=== PATIENT | female | born 1985 | race Caucasian/White ===

== ENCOUNTER 2016-05-31 18:21 | Emergency (ER) | payer OTHER ==
[2016-05-31 18:58] VITALS: RESP 18
--- NOTE | 2016-05-31 19:22 | ED ---
General Adult HPI - General Chief complaint: Chest Pain Stated complaint: abbey Time Seen by Provider: 05/31/16 19:09 Source: patient, RN notes reviewed Mode of arrival: ambulatory Limitations: no limitations - History of Present Illness Initial comments: Patient is a 30-year-old female who presents emergency room today with a chief complaint of bilateral lower rib pain over the last week. Patient does admit that the pain is worse with coughing and sneezing. She does admit that she's had a mild cough with some congestion. Patient denies any sputum production. Patient does state that pain is reproduced with certain movements and palpation. She denies any other complaints or associated symptoms. Patient denies any recent fever, chills, shortness of breath, back pain, abdominal pain , nausea or vomiting, numbness or tingling, dysuria or hematuria, constipation or diarrhea, headaches or visual changes, or any other complaints. - Related Data Home Medications Medication Instructions Recorded Confirmed Ibuprofen [Motrin] 800 mg PO DAILY PRN 05/31/16 05/31/16 Allergies Allergy/AdvReac Type Severity Reaction Status Date / Time latex Allergy Rash/Hives Verified 05/31/16 19:55 red dye Allergy Rash/Hives Verified 05/31/16 19:55 codeine AdvReac Nausea & Verified 05/31/16 19:55 Vomiting & Dizziness Review of Systems ROS Statement: Those systems with pertinent positive or pertinent negative responses have been documented in the HPI. ROS Other: All systems not noted in ROS Statement are negative. Past Medical History Past Medical History: Asthma History of Any Multi-Drug Resistant Organisms: None Reported Past Surgical History: Ear Surgery, Tonsillectomy, Tubal Ligation Past Psychological History: Bipolar Smoking Status: Former smoker Past Alcohol Use History: None Reported Past Drug Use History: None Reported General Exam - General Exam Comments Initial Comments: General: The patient is awake and alert, in no distress, and does not appear acutely ill. Eye: Pupils are equal, round and reactive to light, extra-ocular movements are intact. No nystagmus. There is normal conjunctiva bilaterally. No signs of icterus. Ears, nose, mouth and throat: There are moist mucous membranes and no oral lesions. Neck: The neck is supple, there is no tenderness or JVD. Cardiovascular: There is a regular rate and rhythm. No murmur, rub or gallop is appreciated. Respiratory: Lungs are clear to auscultation, respirations are non-labored, breath sounds are equal. No wheezes, stridor, rales, or rhonchi. Gastrointestinal: Soft, non-distended, non-tender abdomen without masses or organomegaly noted. There is no rebound or guarding present. No CVA tenderness. Bowel sounds are unremarkable. Musculoskeletal: Pain reproduced on palpation to the lower lateral ribs bilaterally. Normal ROM, no tenderness. Strength 5/5. Sensation intact. Pulses equal bilaterally 2+. Neurological: A&O x 3. CN II-XII intact, There are no obvious motor or sensory deficits. Coordination appears grossly intact. Speech is normal. Skin: Skin is warm and dry and no rashes or lesions are noted. Psychiatric: Cooperative, appropriate mood & affect, normal judgment. Limitations: no limitations Course Vital Signs 05/31/16 18:54 Temperature 97.8 F Pulse Rate 87 Respiratory 18 Rate Blood Pressure 123/82 O2 Sat by Pulse 99 Oximetry EKG Findings - EKG Comments: EKG Findings:: EKG performed at 1917: A 12-lead EKG was performed and interpreted by me as showing the following: Rate is 76, and rhythm is normal sinus. There are normal QRS complexes and normal R-wave progression. ST segments have no elevation or depression, and SD segments appear normal. Medical Decision Making - Medical Decision Making Case discussed in detail with attending physician Dr. Mohan. Patient examined at this time shows no signs of distress. EKG shows normal sinus rhythm. X-ray reviewed and unremarkable. Results were discussed patient. Patient's pain reproducible on palpation to the lower ribs bilaterally. Patient has had cough congestion over the past week sputum Production.Advised patient to continue anti -inflammatories as needed for pain and follow-up the family doctor over the next 2 days if symptoms are unimproved. Advised return here in the emergency room if any symptoms increase worsen. Patient states understanding and is in agreement. Disposition Clinical Impression: Chest wall pain Disposition: HOME SELF-CARE Condition: Good Instructions: Costochondritis (ED) Additional Instructions: Please use medication as discussed. Please follow-up with family doctor in the next 2 days of symptoms have not improved. Please return to emergency room if the symptoms increase or worsen or for any other concerns. Time of Disposition: 20:02
[2016-05-31 20:13] VITALS: BP 126/72; PULSE 81; TEMP 97.6
--- NOTE | 2016-05-31 22:23 | XR ---
EXAMINATION TYPE: XR chest 2V DATE OF EXAM: 05/31/2016 7:42 PM COMPARISON: Chest radiograph dated 06/27/2015 HISTORY: Bilateral rib pain and cough for one week TECHNIQUE: Frontal and lateral views of the chest are obtained. FINDINGS: There is no focal air space opacity, pleural effusion, or pneumothorax seen. The cardiac silhouette size is within normal limits. The osseous structures are intact. IMPRESSION: No acute cardiopulmonary process. No focal consolidation.
== END 2016-05-31 20:13 | disposition home or self-care (01) ==
LOC: EC 18:21
DX: R07.89 Other chest pain (principal); Z88.5 Allergy status to narcotic agent; Z91.02 Food additives allergy status; Z91.040 Latex allergy status; Z87.891 Personal history of nicotine dependence
CPT/HCPCS: 71020; 93005; 99285

== ENCOUNTER 2016-06-22 18:57 | Emergency (ER) | payer OTHER ==
--- NOTE | 2016-06-22 20:15 | ED ---
General Adult HPI - General Chief complaint: Extremity Problem,Nontraumatic Stated complaint: Bad foot pain Time Seen by Provider: 06/22/16 19:50 Source: patient, RN notes reviewed Mode of arrival: ambulatory Limitations: no limitations - History of Present Illness Initial comments: This is a 30-year-old female presents emergency Department complaining of a 2 day history of mid right foot pain. Patient states started hurting a couple days ago and hurts when she flexes it or stands up. Patient states his been no injury or trauma that she knows of. Patient states she is no swelling no redness. Patient denies any ankle pain or knee pain. Patient states it also hurts just anterior to the lateral malleolus. Again there is no swelling or redness. - Related Data Home Medications Medication Instructions Recorded Confirmed Ibuprofen [Motrin] 800 mg PO DAILY PRN 05/31/16 06/22/16 Albuterol Inhaler [Ventolin Hfa 1 - 2 puff INHALATION RT-Q6H PRN 06/22/16 Inhaler] Allergies Allergy/AdvReac Type Severity Reaction Status Date / Time latex Allergy Rash/Hives Verified 06/22/16 20:00 red dye Allergy Rash/Hives Verified 06/22/16 20:00 codeine AdvReac Nausea & Verified 06/22/16 20:00 Vomiting & Dizziness Review of Systems ROS Statement: Those systems with pertinent positive or pertinent negative responses have been documented in the HPI. ROS Other: All systems not noted in ROS Statement are negative. Past Medical History Past Medical History: Asthma History of Any Multi-Drug Resistant Organisms: None Reported Past Surgical History: Ear Surgery, Tonsillectomy, Tubal Ligation Past Psychological History: Bipolar Smoking Status: Former smoker Past Alcohol Use History: Rare Past Drug Use History: None Reported General Exam - General Exam Comments Initial Comments: GENERAL Patient is well-developed and well-nourished. Patient is in mild distress. EYES Patient's pupils are equal and round. Extraocular motion is intact SKIN Unremarkable NEURO The patient is alert and oriented 3 PYSCH Patient has normal interpersonal interactions. MUSCULOSKELETAL Foot is mildly tender anterior to the lateral malleolus and in the midfoot around metatarsal 3 and 4. No redness no swelling is noted. No foreign bodies are noted. No cuts or abrasions are noted. Limitations: no limitations Course Vital Signs 06/22/16 06/22/16 19:46 20:34 Temperature 100.0 F H 98.4 F Pulse Rate 93 90 Respiratory 18 20 Rate Blood Pressure 130/84 111/60 O2 Sat by Pulse 98 98 Oximetry Medical Decision Making - Medical Decision Making X-ray of the foot shows no acute abnormality. Disposition Clinical Impression: Foot sprain Disposition: HOME SELF-CARE Condition: Good Instructions: Foot Sprain (ED) Additional Instructions: Patient should take Motrin 600 mg every 6 hours when necessary for pain. Time of Disposition: 21:06
--- NOTE | 2016-06-22 20:29 | XR ---
EXAMINATION TYPE: XR foot complete RT DATE OF EXAM: 06/22/2016 8:24 PM COMPARISON: NONE HISTORY: Right foot pain TECHNIQUE: 3 views FINDINGS: I see no fracture nor dislocation. Metatarsals are intact. There are no erosions. IMPRESSION: Negative right foot exam.
[2016-06-22 20:35] VITALS: BP 111/60; PULSE 90; RESP 20; TEMP 98.4
== END 2016-06-22 21:22 | disposition home or self-care (01) ==
LOC: EC 18:57
DX: S93.601A Unspecified sprain of right foot, initial encounter (principal); J45.909 Unspecified asthma, uncomplicated; Z87.891 Personal history of nicotine dependence; Z88.5 Allergy status to narcotic agent; Z91.040 Latex allergy status; X58.XXXA Exposure to other specified factors, initial encounter
CPT/HCPCS: 99283

== ENCOUNTER 2016-10-09 18:08 | Emergency (ER) | payer OTHER ==
[2016-10-09 18:27] VITALS: BP 149/88; PULSE 90; RESP 20; TEMP 98.9
--- NOTE | 2016-10-09 18:43 | ED ---
General Adult HPI - General Chief complaint: Urogenital Stated complaint: abscess Time Seen by Provider: 10/09/16 18:31 Source: patient, RN notes reviewed Mode of arrival: ambulatory Limitations: no limitations - History of Present Illness Initial comments: Patient is a 30-year-old female with significant past medical history for Bartholin's cyst, who presents emergency room today with a chief complaint of increased pain and possible abscess formation that started this morning. Patient does admit that she is pain on the left side of the perineum. Patient denies any drainage or discharge. She denies any other complaints. States she has been told by her PRODUCE CLERK that his pain reoccurs that she may need surgery. Patient denies any other symptoms. Patient denies any recent fever, chills, shortness of breath, chest pain, back pain, abdominal pain, nausea or vomiting, numbness or tingling, dysuria or hematuria, constipation or diarrhea, headaches or visual changes, or any other complaints. - Related Data Home Medications Medication Instructions Recorded Confirmed Ibuprofen [Motrin] 800 mg PO DAILY PRN 05/31/16 10/09/16 Albuterol Inhaler [Ventolin Hfa 1 - 2 puff INHALATION RT-Q6H PRN 06/22/16 Inhaler] Previous Rx's Medication Instructions Recorded Ibuprofen [Motrin] 600 mg PO Q6HR PRN #40 day 10/09/16 Sulfamethox-Tmp 800-160Mg [Bactrim 1 tab PO Q12HR #20 tab 10/09/16 DS 800-160 mg] Allergies Allergy/AdvReac Type Severity Reaction Status Date / Time latex Allergy Rash/Hives Verified 10/09/16 18:27 red dye Allergy Rash/Hives Verified 10/09/16 18:27 codeine AdvReac Nausea & Verified 10/09/16 18:27 Vomiting & Dizziness Review of Systems ROS Statement: Those systems with pertinent positive or pertinent negative responses have been documented in the HPI. ROS Other: All systems not noted in ROS Statement are negative. Past Medical History Past Medical History: Asthma History of Any Multi-Drug Resistant Organisms: None Reported Past Surgical History: Ear Surgery, Tonsillectomy, Tubal Ligation Past Psychological History: Bipolar Smoking Status: Former smoker Past Alcohol Use History: Rare Past Drug Use History: None Reported General Exam - General Exam Comments Initial Comments: General: The patient is awake and alert, in no distress, and does not appear acutely ill. Eye: Pupils are equal, round and reactive to light, extra-ocular movements are intact. No nystagmus. There is normal conjunctiva bilaterally. No signs of icterus. Ears, nose, mouth and throat: There are moist mucous membranes and no oral lesions. Neck: The neck is supple, there is no tenderness or JVD. Cardiovascular: There is a regular rate and rhythm. No murmur, rub or gallop is appreciated. Respiratory: Lungs are clear to auscultation, respirations are non-labored, breath sounds are equal. No wheezes, stridor, rales, or rhonchi. Gastrointestinal: Soft, non-distended, non-tender abdomen without masses or organomegaly noted. There is no rebound or guarding present. No CVA tenderness. Bowel sounds are unremarkable. Musculoskeletal: Normal ROM, no tenderness. Strength 5/5. Sensation intact. Pulses equal bilaterally 2+. Neurological: A&O x 3. CN II-XII intact, There are no obvious motor or sensory deficits. Coordination appears grossly intact. Speech is normal. Skin: Skin is warm and dry and no rashes or lesions are noted. Psychiatric: Cooperative, appropriate mood & affect, normal judgment. : NEGATIVE STRIPPER Lisa present for exam. There is no sign of abscess on the outer surface of the labia majora. Check for a Bartholin's cyst and do not appreciate 1 here in the emergency room. No sign of drainage. No area of firmness or fluctuance. Patient does have tenderness locally to this area. Limitations: no limitations Course Vital Signs 10/09/16 18:25 Temperature 98.9 F Pulse Rate 90 Respiratory 20 Rate Blood Pressure 149/88 O2 Sat by Pulse 98 Oximetry Medical Decision Making - Medical Decision Making At this time there is no obvious abscess to drain. Advised patient was started on antibiotics and use warm compresses to the affected area. Advised follow-up the next 2 days or return here to the emergency room if symptoms increase or worsen. She states understanding and is in agreement. Disposition Clinical Impression: Abscess Disposition: HOME SELF-CARE Condition: Good Instructions: Bartholin Cyst (ED) Additional Instructions: Please use medication as discussed. Please follow-up with PRODUCE CLERK/family doctor in the next 2 days of symptoms have not improved. Please return to emergency room if the symptoms increase or worsen or for any other concerns. Prescriptions: Ibuprofen [Motrin] 600 mg PO Q6HR PRN #40 day PRN Reason: Pain Sulfamethox-Tmp 800-160Mg [Bactrim DS 800-160 mg] 1 tab PO Q12HR #20 tab Referrals: Jhon Harden III, MD [Primary Care Provider] - 1-2 days Time of Disposition: 18:42
== END 2016-10-09 19:00 | disposition home or self-care (01) ==
LOC: EC 18:08
DX: L02.215 Cutaneous abscess of perineum (principal); Z87.891 Personal history of nicotine dependence; Z91.040 Latex allergy status; Z91.048 Other nonmedicinal substance allergy status; Z88.5 Allergy status to narcotic agent
CPT/HCPCS: 99283

== ENCOUNTER 2018-01-23 13:39 | Emergency (ER) | payer OTHER ==
[2018-01-23 13:58] VITALS: BP 122/64; PULSE 85; RESP 17; TEMP 96.9
--- NOTE | 2018-01-23 14:31 | ED ---
Lower Extremity Injury HPI - General Chief Complaint: Extremity Injury, Lower Stated Complaint: ankle pain Time Seen by Provider: 01/23/18 13:54 Source: patient, EMS, RN notes reviewed Mode of arrival: EMS Limitations: no limitations - History of Present Illness Initial Comments: 32-year-old female presents emergency Department chief complaint of right foot and ankle pain. Patient states has been bothersome for a while worsen over the last few days. She does have a history of fracture. She states that she cannot correlate this to any injury. Patient denies any calf pain, Swelling. Patient states that she has no back issues and denies any symptoms or her rating down her leg at this time. Patient denies any notable bruising or notable area of swelling. Patient has not follow-up with anybody at this time. - Related Data Home Medications Medication Instructions Recorded Confirmed Ibuprofen [Motrin] 800 mg PO DAILY PRN 05/31/16 01/23/18 Multivit with Calcium,Iron,Min 1 tab PO DAILY 01/23/18 01/23/18 [Women's Multivitamin] Previous Rx's Medication Instructions Recorded Ibuprofen [Motrin] 600 mg PO Q8HR PRN #30 tab 01/23/18 Allergies Allergy/AdvReac Type Severity Reaction Status Date / Time latex Allergy Rash/Hives Verified 01/23/18 14:33 red dye Allergy Rash/Hives Verified 01/23/18 14:33 codeine AdvReac Nausea & Verified 01/23/18 14:33 Vomiting & Dizziness Review of Systems ROS Statement: Those systems with pertinent positive or pertinent negative responses have been documented in the HPI. ROS Other: All systems not noted in ROS Statement are negative. Past Medical History Past Medical History: Asthma History of Any Multi-Drug Resistant Organisms: None Reported Past Surgical History: Adenoidectomy, Ear Surgery, Tonsillectomy, Tubal Ligation Additional Past Surgical History / Comment(s): d&c Past Psychological History: Bipolar Smoking Status: Former smoker Past Alcohol Use History: Rare Past Drug Use History: None Reported General Exam Limitations: no limitations General appearance: alert, in no apparent distress Head exam: Present: atraumatic, normocephalic, normal inspection Neck exam: Present: normal inspection, full ROM. Absent: tenderness, meningismus, lymphadenopathy Respiratory exam: Present: normal lung sounds bilaterally. Absent: respiratory distress, wheezes, rales, rhonchi, stridor Cardiovascular Exam: Present: regular rate, normal rhythm, normal heart sounds. Absent: systolic murmur, diastolic murmur, rubs, gallop, clicks Extremities exam: Present: other (Tenderness to lateral malleoli region on the right, tenderness the mid foot with no obvious swelling, deformity pedal pulses equal bilaterally with cap refill less than 2 seconds there is no proximal tib- fib tenderness and there is no femur tenderness) Neurological exam: Present: alert, oriented X3, CN II-XII intact Skin exam: Present: warm, dry, intact, normal color. Absent: rash Course Vital Signs 01/23/18 13:54 Temperature 96.9 F L Pulse Rate 85 Respiratory 17 Rate Blood Pressure 122/64 O2 Sat by Pulse 99 Oximetry Medical Decision Making - Medical Decision Making 32-year-old female presents emergency from chief complaint of right ankle pain. Patient had x-rays of her foot and ankle which showed no acute fracture. Patient most likely has a ankle sprain related to an injury. Patient will be placed in an Aircast and follow-up with on-call orthopedics return parameters were discussed. Disposition Clinical Impression: Right ankle sprain Disposition: HOME SELF-CARE Condition: Stable Instructions: Ankle Sprain (ED) Additional Instructions: Please return to the Emergency Department if symptoms worsen or any other concerns. Prescriptions: Ibuprofen [Motrin] 600 mg PO Q8HR PRN #30 tab PRN Reason: Pain Is patient prescribed a controlled substance at d/c from ED?: No Referrals: Be Orosco MD [STAFF PHYSICIAN] - 1-2 days Time of Disposition: 14:51
--- NOTE | 2018-01-23 14:42 | XR ---
Right foot and right ankle HISTORY: Unable to bear weight, pain 3 views of the right foot and 3 views of the right ankle correlated to prior right foot dated 06/22/19 17 Bone mineralization, joint spaces and alignment are maintained. No fracture or dislocation is evident . Some degenerative change present at the intertarsal joints. There is soft tissue swelling present. Small ossific densities metatarsophalangeal joint of the first digit medially is thought to be stable as well corticated. IMPRESSION: Soft tissue swelling, additional findings above. No acute bone abnormality evident.
== END 2018-01-23 15:17 | disposition home or self-care (01) ==
LOC: EC 13:39
DX: S93.401A Sprain of unspecified ligament of right ankle, initial encounter (principal); Z88.5 Allergy status to narcotic agent; Z91.040 Latex allergy status; Z91.048 Other nonmedicinal substance allergy status; Z79.899 Other long term (current) drug therapy; Z87.891 Personal history of nicotine dependence; X58.XXXA Exposure to other specified factors, initial encounter
CPT/HCPCS: 99283; 73610; 73630; L4350

== ENCOUNTER 2018-02-17 16:33 | Emergency (ER) | payer OTHER ==
[2018-02-17 17:31] VITALS: BP 121/75; PULSE 86; RESP 18; TEMP 98.2
--- NOTE | 2018-02-17 18:18 | XR ---
EXAMINATION TYPE: XR ankle complete LT DATE OF EXAM: 02/17/2018 COMPARISON: NONE HISTORY: Ankle pain TECHNIQUE: 3 views FINDINGS: There is soft tissue swelling over the lateral malleolus. Ankle mortise is anatomic. IMPRESSION: Mild soft tissue swelling. No fracture seen. There is accessory ossicle at the anterior n avicular.
--- NOTE | 2018-02-17 18:19 | XR ---
EXAMINATION TYPE: XR foot complete LT DATE OF EXAM: 02/17/2018 COMPARISON: NONE HISTORY: Foot pain. Fell down the steps. TECHNIQUE: 3 views FINDINGS: Metatarsals appear intact. I see no fracture nor dislocation. Joint spaces are normal. Ther e is accessory ossicle of the anterior navicular on the lateral view. IMPRESSION: No acute abnormality of the left foot.
--- NOTE | 2018-02-17 18:48 | ED ---
General Adult HPI - General Chief complaint: Extremity Injury, Lower Stated complaint: Foot swollen Time Seen by Provider: 02/17/18 18:36 Source: patient, RN notes reviewed Mode of arrival: ambulatory Limitations: no limitations - History of Present Illness Initial comments: Patient's a 32-year-old female presented to the emergency room today with a chief complaint of an injury to the left ankle that occurred a few hours ago. Patient does admit that she was walking down a few steps when she slipped and went down 2 steps rolling her left ankle. She states there was no loss of consciousness. She denies any headache at this time. She denies any other complaints or symptoms currently. She does admit that pain to the left ankle it is worse with ambulation and bearing weight. Patient denies any recent fever , chills, shortness of breath, chest pain, back pain, abdominal pain, nausea or vomiting, numbness or tingling, dysuria or hematuria, constipation or diarrhea, visual changes, or any other complaints. - Related Data Home Medications Medication Instructions Recorded Confirmed Ibuprofen [Motrin] 800 mg PO DAILY PRN 05/31/16 01/23/18 Multivit with Calcium,Iron,Min 1 tab PO DAILY 01/23/18 01/23/18 [Women's Multivitamin] Previous Rx's Medication Instructions Recorded Ibuprofen [Motrin] 600 mg PO Q8HR PRN #30 tab 01/23/18 Ibuprofen [Motrin] 600 mg PO Q6HR PRN #40 day 02/17/18 Allergies Allergy/AdvReac Type Severity Reaction Status Date / Time latex Allergy Rash/Hives Verified 01/23/18 14:33 red dye Allergy Rash/Hives Verified 01/23/18 14:33 codeine AdvReac Nausea & Verified 01/23/18 14:33 Vomiting & Dizziness Review of Systems ROS Statement: Those systems with pertinent positive or pertinent negative responses have been documented in the HPI. ROS Other: All systems not noted in ROS Statement are negative. Past Medical History Past Medical History: Asthma History of Any Multi-Drug Resistant Organisms: None Reported Past Surgical History: Adenoidectomy, Ear Surgery, Tonsillectomy, Tubal Ligation Additional Past Surgical History / Comment(s): d&c Past Psychological History: Bipolar Smoking Status: Former smoker Past Alcohol Use History: Rare Past Drug Use History: None Reported General Exam - General Exam Comments Initial Comments: General: The patient is awake and alert, in no distress, and does not appear acutely ill. Neck: The neck is supple, there is no tenderness or JVD. Musculoskeletal: Patient does have some moderate swelling over the lateral malleolus. She is locally tender in this area with increased tenderness in the ATFL. No tenderness of left knee. No tenderness on the left foot. Pedal pulse 2+. Patient shows good range of motion. Neurological: A&O x 3. CN II-XII intact, There are no obvious motor or sensory deficits. Coordination appears grossly intact. Speech is normal. Skin: Skin is warm and dry and no rashes or lesions are noted. Psychiatric: Normal mood and affect. Limitations: no limitations Course Vital Signs 02/17/18 17:29 Temperature 98.2 F Pulse Rate 86 Respiratory 18 Rate Blood Pressure 121/75 O2 Sat by Pulse 99 Oximetry Medical Decision Making - Medical Decision Making X-ray reviewed and is unremarkable no sign of fracture dislocation. Results were discussed with the patient. Patient is advised to continue ice elevate the affected area and use Tylenol/ibuprofen for pain. Will be given Aircast splint here in the emergency room along with crutches to use as tolerated. She is advised follow-up with the orthopedic doctor in 7-10 days for repeat x-rays if symptoms persist. Disposition Clinical Impression: Ankle sprain Disposition: HOME SELF-CARE Condition: Good Instructions: Ankle Sprain (ED) Additional Instructions: Please continue to ice elevate the affected area at least 4 times a day for 20 minutes at a time. Please use Tylenol/ibuprofen for pain. Please follow-up in 7-10 days for repeat x-rays if symptoms persist. Please return to emergency room for any other concerns. Prescriptions: Ibuprofen [Motrin] 600 mg PO Q6HR PRN #40 day PRN Reason: Pain Is patient prescribed a controlled substance at d/c from ED?: No Referrals: None,Stated [Primary Care Provider] - 1-2 days Mark Hollis MD [Medical Doctor] - 1-2 days Time of Disposition: 18:48
== END 2018-02-17 19:16 | disposition home or self-care (01) ==
LOC: EC 16:33
DX: S93.402A Sprain of unspecified ligament of left ankle, initial encounter (principal); Z87.891 Personal history of nicotine dependence; Z91.040 Latex allergy status; Z91.018 Allergy to other foods; Z88.5 Allergy status to narcotic agent; W10.9XXA Fall (on) (from) unspecified stairs and steps, initial encounter; Y93.01 Activity, walking, marching and hiking
CPT/HCPCS: 99283

== ENCOUNTER 2018-04-14 20:58 | Emergency (ER) | payer OTHER ==
[2018-04-14 21:04] VITALS: TEMP 97.9
[2018-04-14] MEDS ORDERED: CYCLOBENZAPRINE 10MG STARTER 3 TAB BTL PO STA (21:29)
[2018-04-14] MEDS ORDERED: IBUPROFEN 600 MG STARTER PACK 4 TAB BTL PO STA (21:33)
--- NOTE | 2018-04-14 21:47 | ED ---
Upper Extremity HPI - General Chief Complaint: Extremity Injury, Upper Stated Complaint: Shoulder and arm pain Time Seen by Provider: 04/14/18 21:14 Source: patient, RN notes reviewed, old records reviewed Mode of arrival: ambulatory Limitations: no limitations - History of Present Illness Initial Comments: Patient is a 32-year-old female, presents restaurant today with 2 months of right shoulder pain. Patient reports symptoms started after she lifted up her grandfather fell. Patient states that she feels occasional popping sensation within the right shoulder. She is left-handed. Patient reports pain with any range of motion of both her shoulder and abduction greater than 90. Patient states that she's not followed up with anyone at this time. She occasionally takes Motrin and Tylenol. - Related Data Home Medications Medication Instructions Recorded Confirmed Ibuprofen [Motrin] 800 mg PO DAILY PRN 05/31/16 01/23/18 Multivit with Calcium,Iron,Min 1 tab PO DAILY 01/23/18 01/23/18 [Women's Multivitamin] Previous Rx's Medication Instructions Recorded Ibuprofen [Motrin] 600 mg PO Q8HR PRN #30 tab 01/23/18 Ibuprofen [Motrin] 600 mg PO Q6HR PRN #40 day 02/17/18 Cyclobenzaprine [Flexeril] 10 mg PO TID #12 tab 04/14/18 Ibuprofen 600 mg PO TID #20 tablet 04/14/18 Allergies Allergy/AdvReac Type Severity Reaction Status Date / Time latex Allergy Rash/Hives Verified 04/14/18 21:04 red dye Allergy Rash/Hives Verified 04/14/18 21:04 codeine AdvReac Nausea & Verified 04/14/18 21:04 Vomiting & Dizziness Review of Systems ROS Statement: Those systems with pertinent positive or pertinent negative responses have been documented in the HPI. ROS Other: All systems not noted in ROS Statement are negative. Past Medical History Past Medical History: Asthma History of Any Multi-Drug Resistant Organisms: None Reported Past Surgical History: Adenoidectomy, Ear Surgery, Tonsillectomy, Tubal Ligation Additional Past Surgical History / Comment(s): d&c Past Psychological History: Bipolar Smoking Status: Former smoker Past Alcohol Use History: Rare Past Drug Use History: None Reported General Exam - General Exam Comments Initial Comments: 32-year-old female. Alert and oriented. Limitations: no limitations General appearance: alert, in no apparent distress Head exam: Present: atraumatic, normocephalic, normal inspection Eye exam: Present: normal appearance, PERRL, EOMI. Absent: scleral icterus, conjunctival injection, periorbital swelling ENT exam: Present: normal exam, mucous membranes moist Neck exam: Present: normal inspection. Absent: tenderness, meningismus, lymphadenopathy Respiratory exam: Present: normal lung sounds bilaterally. Absent: respiratory distress, wheezes, rales, rhonchi, stridor Cardiovascular Exam: Present: regular rate, normal rhythm, normal heart sounds. Absent: systolic murmur, diastolic murmur, rubs, gallop, clicks GI/Abdominal exam: Present: soft, normal bowel sounds. Absent: distended, tenderness, guarding, rebound, rigid Extremities exam: Present: normal inspection, full ROM, normal capillary refill. Absent: tenderness, pedal edema, joint swelling, calf tenderness Back exam: Present: normal inspection Neurological exam: Present: alert, oriented X3, CN II-XII intact Psychiatric exam: Present: normal affect, normal mood Skin exam: Present: warm, dry, intact, normal color. Absent: rash Course Vital Signs 04/14/18 21:01 Temperature 97.9 F Pulse Rate 91 Respiratory 18 Rate Blood Pressure 118/80 O2 Sat by Pulse 99 Oximetry Disposition Clinical Impression: Injury of right rotator cuff Disposition: HOME SELF-CARE Condition: Good Instructions: Rotator Cuff Injury (ED) Additional Instructions: Patient advised to have close follow-up with primary care physician. Return to emergency department if any alarming signs or symptoms occur. Follow-up with closing specialist as well. Prescriptions: Cyclobenzaprine [Flexeril] 10 mg PO TID #12 tab Ibuprofen 600 mg PO TID #20 tablet Is patient prescribed a controlled substance at d/c from ED?: No When asked, does pt state using other controlled substances?: No Referrals: None,Stated [Primary Care Provider] - 1-2 days Kathi Mejía PAC [PHYSICIAN PATTERN PAINTER] - 1-2 days Time of Disposition: 22:21
--- NOTE | 2018-04-14 22:04 | XR ---
EXAMINATION TYPE: XR shoulder complete RT DATE OF EXAM: 04/14/2018 COMPARISON: 06/27/2015 HISTORY: Shoulder pain TECHNIQUE: 3 views FINDINGS: I see no fracture nor dislocation. Joint spaces are normal. There are no pathologic calcifi cations. IMPRESSION: Negative right shoulder exam. No change.
[2018-04-14 23:10] VITALS: BP 122/71; PULSE 70; RESP 15
== END 2018-04-14 22:35 | disposition home or self-care (01) ==
LOC: EC 20:58
DX: S46.001A Unspecified injury of muscle(s) and tendon(s) of the rotator cuff of right shoulder, initial encounter (principal); Z87.891 Personal history of nicotine dependence; Z91.040 Latex allergy status; Z91.048 Other nonmedicinal substance allergy status; Z88.5 Allergy status to narcotic agent; X50.0XXA Overexertion from strenuous movement or load, initial encounter; Y92.009 Unspecified place in unspecified non-institutional (private) residence as the place of occurrence of the external cause
CPT/HCPCS: 99284

== ENCOUNTER 2018-10-01 20:31 | Emergency (ER) | payer OTHER ==
[2018-10-01 20:45] VITALS: BP 144/90; PULSE 92; RESP 18; TEMP 98.9
--- NOTE | 2018-10-01 21:24 | XR ---
EXAMINATION TYPE: XR hand complete RT, XR wrist complete RT DATE OF EXAM: 10/01/2018 CLINICAL HISTORY: Right hand and wrist pain after fall TECHNIQUE: Frontal, lateral and oblique images of the right hand are obtained. Frontal, lateral and oblique images of the right wrist are obtained. Scaphoid view was also obtained. COMPARISON: None. FINDINGS: There is no acute fracture/dislocation evident in the right hand. The joint spaces in the right hand appear within normal limits. The overlying soft tissue appears unremarkable. There is wid ening of the scapholunate joint on the scaphoid view only. There is no acute fracture/dislocation evident in the right wrist. The joint spaces in the right wri st appear within normal limits. The overlying soft tissue appears unremarkable. IMPRESSION: There is no acute fracture or dislocation in the right hand nor wrist. Widening of the s capholunate joint and the scaphoid view only. Therefore this could be positional. Correlate for wrist instability. MRI could evaluate for the volar and dorsal scapholunate ligament continuity. MR wrist arthrogram would increase sensitivity.
--- NOTE | 2018-10-01 21:40 | ED ---
General Adult HPI - General Chief complaint: Fall Stated complaint: Hand injury Time Seen by Provider: 10/01/18 20:47 Source: patient, RN notes reviewed, old records reviewed Mode of arrival: ambulatory Limitations: no limitations - History of Present Illness Initial comments: 32-year-old female patient with past history of tubal ligation [facility] with ri ght wrist injury. Reportedly yesterday she was walking with a weed Robin at her house. Patient works that she walked into a tree branch limb. Patient states that she fell backwards onto her gluteal region. Patient reports that she had a transient loss of consciousness or approximate 1 second. Patient states that she caught herself with her outstretched right arm, causing injury to her wrist. Patient reports a mild headache. Denies was irregular. Denies changes in vision. Denies thunderclap onset. Denies any neck pain. Systemic: Pt denies fatigue, fever/chills, rash. Pt denies weakness, night sweats, weight loss. Neuro: Pt denies headache, visual disturbances, syncope or pre-syncope. HEENT: Pt denies ocular discharge or irritation, otalgia, rhinorrhea, pharyngitis or notable lymphadenopathy. Cardiopulmonary: Pt denies chest pain, SOB, heart palpitations, dyspnea on exertion. Abdominal/GI: Pt denies abdominal pain, n/v/d. : Pt denies dysuria, burning w/ urination, frequency/urgency. Denies new onset urinary or bowel incontinence. MSK: Pt denies myalgia, loss of strength or function in extremities. Neuro: Pt denies new onset weakness, paresthesias. - Related Data Home Medications Medication Instructions Recorded Confirmed Ibuprofen [Motrin] 800 mg PO DAILY PRN 05/31/16 01/23/18 Multivit with Calcium,Iron,Min 1 tab PO DAILY 01/23/18 01/23/18 [Women's Multivitamin] Previous Rx's Medication Instructions Recorded Ibuprofen [Motrin] 600 mg PO Q8HR PRN #30 tab 01/23/18 Ibuprofen [Motrin] 600 mg PO Q6HR PRN #40 day 02/17/18 Cyclobenzaprine [Flexeril] 10 mg PO TID #12 tab 04/14/18 Ibuprofen 600 mg PO TID #20 tablet 04/14/18 Allergies Allergy/AdvReac Type Severity Reaction Status Date / Time latex Allergy Rash/Hives Verified 10/01/18 20:45 red dye Allergy Rash/Hives Verified 10/01/18 20:45 codeine AdvReac Nausea & Verified 10/01/18 20:45 Vomiting & Dizziness Review of Systems ROS Statement: Those systems with pertinent positive or pertinent negative responses have been documented in the HPI. ROS Other: All systems not noted in ROS Statement are negative. Past Medical History Past Medical History: Asthma History of Any Multi-Drug Resistant Organisms: None Reported Past Surgical History: Adenoidectomy, Ear Surgery, Tonsillectomy, Tubal Ligation Additional Past Surgical History / Comment(s): d&c Past Psychological History: Bipolar Smoking Status: Former smoker Past Alcohol Use History: Rare Past Drug Use History: None Reported General Exam - General Exam Comments Initial Comments: Constitutional: NAD, AOX3, Pt has pleasant affect. HEENT: NC/AT, trachea midline, neck supple, no lymphadenopathy. Posterior pharynx non erythematous, without exudates. External ears appear normal, without discharge. Mucous membranes moist. Eyes PERRLA, EOM intact. There is no scleral icterus. No pallor noted. Cardiopulmonary: RRR, no murmurs, rubs or gallops, no JVD noted. Lungs CTAB in anterior and posterior ortiz. No peripheral edema. Abdominal exam: Abdomen soft and non-distended. Abdomen non-tender to palpation in all 4 quadrants. Bowel sounds active in LLQ. No hepatosplenomegaly. No ecchymosis Neuro: CN II-XII intact. No nuchal rigidity. No raccon eyes, no amaya sign, no hemotympanum. No cervical spinal tenderness. MSK: Full active range of motion of right wrist and hand. Capillary refill less than 2 seconds. Mild amount of snuffblox tenderness. Patient placed in thumb spica splint. Patient neurovascularly intact after splint placement. No posterior calf tenderness bilaterally, homans sign negative bilaterally. Posterior tibialis and radial pulse +2 bilaterally. Sensation intact in upper and lower extremities. Full active ROM in upper and lower extremities, 5/5 stregnth. Limitations: no limitations Course Vital Signs 10/01/18 20:41 Temperature 98.9 F Pulse Rate 92 Respiratory 18 Rate Blood Pressure 144/90 O2 Sat by Pulse 99 Oximetry Medical Decision Making - Medical Decision Making 32-year-old female patient with past history of tubal ligation [facility] with right wrist injury. Reportedly yesterday she was walking with a weed Robin at her house. Patient works that she walked into a tree branch limb. Patient states that she fell backwards onto her gluteal region. Patient reports that she had a transient loss of consciousness or approximate 1 second. Patient states that she caught herself with her outstretched right arm, causing injury to her wrist. Patient reports a mild headache. Denies was irregular. Denies changes in vision. Denies thunderclap onset. Denies any neck pain. Patient also has stable, afebrile. Physical exam displayed: Full active range of motion of right wrist and hand. Capillary refill less than 2 seconds. Mild amount of snuffblox tenderness. Patient placed in thumb spica splint. Patient neurovascularly intact after splint placement. CT of brain and cervical spine displayed no acute fracture dislocation cervical spine, no acute intracranial hemorrhage mass effect or midline shift. Enlargement and diffuse heterogenicity of the right thyroid gland. US f/u on non emergent basis. Plain film of hand and wrist displayed no acute fracture or dislocation. Widening of the scapholunate joint. Patient placed in thumb spica splint. Patient discharged with outpatient follow-up with orthopedic surgeon. Patient return to ER condition worsens. Case discussed with Dr. Boggs. Disposition Clinical Impression: Fall, Wrist sprain Disposition: HOME SELF-CARE Condition: Stable Instructions (If sedation given, give patient instructions): Fall Prevention (ED), Wrist Sprain (ED) Additional Instructions: Patient to adhere to previously discussed treatment plan and will take medication(s) as directed. Patient to follow up with PCP in 1-2 days. Patient to return to ED if symptoms do not improve. Follow with orthopedic consult in 1-2 days. Follow up with primary care provider for ultrasound of thyroid in 1-2 days. Return to ER if condition worsens. Is patient prescribed a controlled substance at d/c from ED?: No Referrals: Jhon Harden III, MD [Primary Care Provider] - 1-2 days
--- NOTE | 2018-10-01 21:43 | CT ---
EXAMINATION TYPE: CT brain cspine wo con DATE OF EXAM: 10/01/2018 COMPARISON: NONE HISTORY: Pt hit her head on a tree branch yesterday while doing yard work, causing LOC CT DLP: 1636 mGycm. Automated Exposure Control for Dose Reduction was Utilized. TECHNIQUE: CT scan of the head and cervical spine are performed without contrast. FINDINGS: There is no acute intracranial hemorrhage, mass effect, or midline shift identified. The ventricles and sulci are within normal limits in size. The globes appear intact. There is a mucosal retention cyst in the right maxillary sinus measuring 1.4 cm. Remaining paranasal sinuses and mastoid air cells are well aerated. Cervical spine is visualized in its entirety from C1 through upper thoracic levels and demonstrates s atisfactory alignment without evidence of acute fracture or dislocation. Prevertebral soft tissue ap pears within normal limits. The C1-C2 articulation is unremarkable. Evaluation of the spinal canal i s limited on CT. There is asymmetric enlargement and heterogeneity of the thyroid gland. Thyroid glan d ultrasound is recommended on a nonemergent basis. There is reversal of the usual cervical lordosis. IMPRESSION: 1. There is no acute fracture or dislocation evident in the cervical spine. 2. No acute intracranial hemorrhage, mass effect, or midline shift is seen. 3. Enlargement and diffuse heterogeneity of the right thyroid gland. Thyroid gland ultrasound is [place] mmended on a nonemergent basis. 2. Reversal usual cervical lordosis that may relate to muscular sprain/spasm or patient positioning.
== END 2018-10-01 23:01 | disposition home or self-care (01) ==
LOC: EC 20:31
DX: S63.501A Unspecified sprain of right wrist, initial encounter (principal); R51 Headache; Z87.891 Personal history of nicotine dependence; Z91.040 Latex allergy status; Z88.5 Allergy status to narcotic agent; Z91.09 Other allergy status, other than to drugs and biological substances; W18.09XA Striking against other object with subsequent fall, initial encounter; Y93.01 Activity, walking, marching and hiking; Y92.009 Unspecified place in unspecified non-institutional (private) residence as the place of occurrence of the external cause
CPT/HCPCS: 29125; 70450; 72125; 99284

== ENCOUNTER → 2018-11-18 | Outpatient (CLI) | payer OTHER ==
[2018-11-18 11:06] LABS: HCT 42.6 % (34.0-46.0); HGB 13.9 gm/dL (11.4-16.0); MCH 25.9 pg (25.0-35.0); MCHC 32.7 g/dL (31.0-37.0); MCV 79.3 fL (80.0-100.0); Mean Platelet Volume 6.3; Platelet Count 394 k/uL (150-450); RBC 5.37 m/uL (3.80-5.40); RDW 14.2 % (11.5-15.5); WBC 10.5 k/uL (3.8-10.6)
== END | disposition home or self-care (01) ==
LOC: LABPAT 10:25
PROVIDERS: ATTEND Anesthesiology
DX: Z01.812 Encounter for preprocedural laboratory examination (principal)
CPT/HCPCS: 85027

== ENCOUNTER 2018-11-21 07:55 | Day surgery (SDC) | payer OTHER ==
[2018-11-16 14:28] VITALS: BMI 33.3
[~2018-11-21 07:55] MED LIST: HEPARIN SODIUM,PORCINE 5,000 UNIT/ML 1 ML VIAL SQ ONE; MIDAZOLAM 2 MG/2 ML VIAL IV PRN; ONDANSETRON 4 MG/2 ML VIAL IVP ONE
[2018-11-21] MEDS ORDERED: LIDOCAINE 1% 20 ML VIAL (10MG/ML) FOR IV START INTRADERMA ONE (10:02)
[2018-11-21] MEDS: LACTATED RINGERS 1,000 ML IV SCH ×2 (10:03→12:12)
--- NOTE | 2018-11-21 12:05 | P.GSHP ---
History of Present Illness H&P Date: 11/21/18 Chief Complaint: Umbilical hernia This is a 33-year-old female who presents today for laparoscopic robotic system repair of umbilical hernia. Patient has had complete pain tender mass at her umbilicus. She see in the office found have a reducible umbilical hernia. Past Medical History Past Medical History: Asthma Additional Past Medical History / Comment(s): Migraines. History of Any Multi-Drug Resistant Organisms: None Reported Past Surgical History: Adenoidectomy, Ear Surgery, Tonsillectomy, Tubal Ligation Additional Past Surgical History / Comment(s): D&C. Past Anesthesia/Blood Transfusion Reactions: No Reported Reaction Past Psychological History: No Psychological Hx Reported Smoking Status: Former smoker Past Alcohol Use History: Rare Additional Past Alcohol Use History / Comment(s): Quit smoking 15 yrs ago. Past Drug Use History: None Reported - Past Family History Mother Family Medical History: No Reported History Medications and Allergies Home Medications Medication Instructions Recorded Confirmed Type Ibuprofen [Motrin] 800 mg PO TID 05/31/16 11/16/18 History Albuterol Inhaler [Ventolin Hfa 1 - 2 puff INHALATION RT-Q6H PRN 11/16/18 11/21/18 History Inhaler] Allergies Allergy/AdvReac Type Severity Reaction Status Date / Time latex Allergy Rash/Hives Verified 11/21/18 09:31 red dye Allergy Rash/Hives Verified 11/21/18 09:31 codeine AdvReac Nausea & Verified 11/21/18 09:31 Vomiting & Dizziness pantoprazole AdvReac Nausea Verified 11/21/18 09:31 prednisone AdvReac Nausea Verified 11/21/18 09:31 Surgical - Exam Vital Signs Temp Pulse Resp BP Pulse Ox 98.2 F 90 18 125/80 99 11/21/18 09:38 11/21/18 09:38 11/21/18 09:38 11/21/18 09:38 11/21/18 09:38 - General well developed, well nourished, no distress - Eyes PERRL - ENT normal pinna - Neck no masses - Respiratory normal expansion - Cardiovascular Rhythm: regular - Abdomen Abdomen: soft, non tender Hernia: umbilical Assessment and Plan Assessment: Umbilical hernia. We'll perform laparoscopic robotic-assisted repair.
[2018-11-21] MEDS ORDERED: LIDOCAINE 1% INJ 10MG/ML (20 ML MDV) ONE (12:20)
[2018-11-21] MEDS ORDERED: MIDAZOLAM 2 MG/2 ML VIAL ONE (12:20)
[2018-11-21] MEDS ORDERED: MORPHINE SULFATE 10 MG/ML SYRINGE ONE (12:20)
[2018-11-21] MEDS ORDERED: PROPOFOL 10 MG/ML 20 ML VIAL IV ONE (12:20)
[2018-11-21] MEDS ORDERED: fentaNYL (PF) 50 MCG/ML 2 ML AMP ONE (12:20)
[2018-11-21] MEDS ORDERED: ROCURONIUM BROMIDE 10 MG/ML 10 ML VIAL IV ONE (12:20)
[2018-11-21] MEDS ORDERED: SUCCINYLCHOLINE CHLORIDE 100 MG/5 ML SYR IV ONE (12:20)
[2018-11-21] MEDS ORDERED: BUPIVACAINE (PF) 0.5% 30 ML VIAL SQ ONE (12:42)
[2018-11-21] MEDS ORDERED: LACTATED RINGERS 1,000 ML IV ONE (13:21)
--- NOTE | 2018-11-21 13:22 | P.OP ---
Date of Procedure: 11/21/18 Preoperative Diagnosis: Umbilical hernia Postoperative Diagnosis: Incarcerated umbilical hernia Procedure(s) Performed: Laparoscopic robotic-assisted repair of incarcerated umbilical hernia Anesthesia: DEBI Surgeon: Conrad Garcia Estimated Blood Loss (ml): 5 Pathology: other (Incarcerated omentum hernia sac) Condition: stable Disposition: PACU Description of Procedure: The patient was placed on the operating table in the supine position. He received general anesthesia. His abdomen was prepped and draped usual fashion. Using a 5 mm optical trocar under direct visualization the peritoneal cavity was entered in the left upper quadrant. The abdomen was then insufflated. The laparoscope was placed back into the perineal cavity. Next a 8 mm robotic trocar was placed in the left lower quadrant and a 12 mm robotic trocar was placed in the left lateral position. The original 5 mm trocar was exchanged for a 8 mm robotic trocar. The patient's placed in the left side up position. And the patient was undocked the robot. The umbilical hernia was visualized. Using hook cautery the peritoneum over the umbilical hernia was excised. The incarcerated omentum/hernia sac was excised. The specimen sent to pathology. The fascial opening was repaired using 0V LOC suture. Next a piece of 11 cm round ventral light ST mesh was placed into the. Cavity and secured with 2 OV lock suture. The patient was undocked the robot. The needles were retrieved. The fascia of the 12 mm trocar site was closed with 0 Ethibond suture. Skin was closed interrupted 3-0 Monocryl suture. Dermabond dressings was applied. Patient top procedure well and was sent to recovery room stable condition.
[2018-11-21 13:38] VITALS: TEMP 97.2
[2018-11-21] MEDS: HYDROmorphone 0.5 MG/0.5 ML SYRINGE IVP PRN ×4 (14:09→14:47)
[2018-11-21 15:20] VITALS: RESP 16
[2018-11-21] MEDS ORDERED: HYDROcodone/APAP 5-325MG 1 EACH TAB PO ONE (15:21)
[2018-11-21 16:27] VITALS: BP 123/70; PULSE 123
== END 2018-11-21 17:30 | disposition home or self-care (01) ==
LOC: OR 07:55
PROVIDERS: ATTEND Surgery
DX: K42.0 Umbilical hernia with obstruction, without gangrene (principal); J45.909 Unspecified asthma, uncomplicated; Z87.891 Personal history of nicotine dependence; Z88.5 Allergy status to narcotic agent; Z88.8 Allergy status to other drugs, medicaments and biological substances; Z79.1 Long term (current) use of non-steroidal anti-inflammatories (NSAID); Z79.899 Other long term (current) drug therapy; Z91.040 Latex allergy status; Z91.048 Other nonmedicinal substance allergy status; E66.9 Obesity, unspecified; Z68.33 Body mass index [BMI] 33.0-33.9, adult
CPT/HCPCS: 49653; 81025; 88302; C1781; J2250; J1644; J2270; J0690; J2405; J2001; J3010; J0330; J2704; J1170

== ENCOUNTER 2019-06-02 23:40 | Emergency (ER) | payer OTHER ==
[2019-06-02] MEDS ORDERED: IBUPROFEN 800 MG TAB PO STA (23:58)
[2019-06-02] MEDS ORDERED: ACETAMINOPHEN TAB 325 MG TAB PO STA (23:58)
[2019-06-03] MEDS ORDERED: ALBUTEROL NEBULIZED 2.5 MG/3 ML INHALATION STA (00:16)
--- NOTE | 2019-06-03 00:25 | XR ---
EXAMINATION TYPE: XR chest 2V DATE OF EXAM: 06/03/2019 COMPARISON: 05/31/2016 HISTORY: Fever and cough TECHNIQUE: FINDINGS: Heart and mediastinum are normal. Lungs are clear. Diaphragm is normal. Bony thorax appears normal. IMPRESSION: Normal chest. No change.
[2019-06-03 01:00] VITALS: RESP 18
[2019-06-03] MEDS ORDERED: SODIUM CHLORIDE 0.9% 1,000 ML IV ONE (01:11)
[2019-06-03] MEDS ORDERED: SODIUM CHLORIDE 0.9% 1,000 ML IV SCH (01:15)
[2019-06-03 01:17] VITALS: TEMP 99.6
[2019-06-03 01:36] LABS: Basophils # (A) 0.1 k/uL (0-0.2); Basophils % (A) 1 %; Eosinophils # (A) 0.2 k/uL (0-0.7); Eosinophils % (A) 2 %; HGB 14.3 gm/dL (11.4-16.0); Lymphocytes # (A) 1.5 k/uL (1.0-4.8); Lymphocytes % (A) 13 %; MCH 26.2 pg (25.0-35.0); MCHC 32.5 g/dL (31.0-37.0); MCV 80.6 fL (80.0-100.0); Mean Platelet Volume 6.7; Monocytes # (A) 0.4 k/uL (0-1.0); Monocytes % (A) 3 %; Neutrophils # (A) 9.1 k/uL (1.3-7.7); Neutrophils % (A) 80 %; Platelet Count 385 k/uL (150-450); RBC 5.45 m/uL (3.80-5.40); RDW 13.6 % (11.5-15.5); WBC 11.4 k/uL (3.8-10.6)
[2019-06-03 01:45] LABS: ALT 45 U/L (4-34); AST 37 U/L (14-36); African American GFR (CKD) >90 (>60 ml/min/1.73 sqM); Albumin 4.3 g/dL (3.5-5.0); Alkaline Phosphatase 84 U/L (38-126); Anion Gap 10 mmol/L; Blood Urea Nitrogen 14 mg/dL (7-17); Calcium 9.7 mg/dL (8.4-10.2); Carbon Dioxide 23 mmol/L (22-30); Chloride 103 mmol/L (98-107); Glucose 109 mg/dL (74-99); Non-African American GFR(CKD) >90 (>60 ml/min/1.73 sqM); Potassium 3.9 mmol/L (3.5-5.1); Sodium 136 mmol/L (137-145); Total Bilirubin 0.5 mg/dL (0.2-1.3); Total Protein 7.4 g/dL (6.3-8.2)
--- NOTE | 2019-06-03 02:01 | ED ---
URI HPI - General Chief Complaint: Upper Respiratory Infection Stated Complaint: Cough Time Seen by Provider: 06/02/19 23:52 Source: patient Mode of arrival: ambulatory Limitations: no limitations - History of Present Illness Initial Comments: 33yo female with history of asthma presenting to the ER today for cc of cough, fevers, bodyaches. Patient states she has had cough fever and bodyaches for the psat few hours she states earlier when she brought her and child in for evaluation who were diagnosed with influenza A-- she felt ok. But this evening she developed what she believed was influenza. Patient has not taken any ibuprofen or tylenol. Denies chest pain, states she has mild SOB. Patient denies leg swelling, , history of DVT. Patient denies recent surgeries. Denies chronic steroid use or splenectomy. Patient denies hemoptysis. Patient has no other complaints on arrival. Obvious cough. - Related Data Home Medications Medication Instructions Recorded Confirmed Ibuprofen [Motrin] 800 mg PO TID 05/31/16 11/16/18 Albuterol Inhaler [Ventolin Hfa 1 - 2 puff INHALATION RT-Q6H PRN 11/16/18 11/21/18 Inhaler] Previous Rx's Medication Instructions Recorded Docusate [Colace] 100 mg PO BID #20 capsule 11/21/18 HYDROcodone/APAP 5-325MG [[place] 1 tab PO Q6HR PRN #10 tab 11/21/18 5-325] Albuterol Nebulized [Ventolin 2.5 mg INHALATION Q4H 7 Days #28 06/03/19 Nebulized] nebu Oseltamivir [Tamiflu] 75 mg PO Q12HR 5 Days #10 cap 06/03/19 Allergies Allergy/AdvReac Type Severity Reaction Status Date / Time latex Allergy Rash/Hives Verified 06/02/19 23:50 red dye Allergy Rash/Hives Verified 06/02/19 23:50 codeine AdvReac Nausea & Verified 06/02/19 23:50 Vomiting & Dizziness pantoprazole AdvReac Nausea Verified 06/02/19 23:50 prednisone AdvReac Nausea Verified 06/02/19 23:50 Review of Systems ROS Statement: Those systems with pertinent positive or pertinent negative responses have been documented in the HPI. ROS Other: All systems not noted in ROS Statement are negative. Past Medical History Past Medical History: Asthma Additional Past Medical History / Comment(s): Migraines. History of Any Multi-Drug Resistant Organisms: None Reported Past Surgical History: Adenoidectomy, Ear Surgery, Tonsillectomy, Tubal Ligation Additional Past Surgical History / Comment(s): D&C. Past Anesthesia/Blood Transfusion Reactions: No Reported Reaction Past Psychological History: No Psychological Hx Reported Smoking Status: Former smoker Past Alcohol Use History: Rare Past Drug Use History: None Reported - Past Family History Mother Family Medical History: No Reported History General Exam - General Exam Comments Initial Comments: General: The patient is awake and alert, in no distress, and does not appear acutely ill. Eye: +3 mm pupils are equal, round and reactive to light, extra-ocular movements are intact. No nystagmus. There is normal conjunctiva bilaterally. No signs of icterus. No photophobia Ears, nose, mouth and throat: There are moist mucous membranes and no oral lesions. Oropharynx was not erythematous there is no tonsillar enlargement exudates or lesions. Uvula midline. Tympanic membranes are not erythematous or is no effusions bulging or retraction. No tenderness to palpation of the mastoid. No anterior cervical lymphadenopathy. Rhinorrhea, clear and bilateral nares. No tripoding, no drooling. Neck: The neck is supple, there is no tenderness or JVD. No nuchal rigidity Cardiovascular: There is a regular rate and rhythm. No murmur, rub or gallop is appreciated. Respiratory: Lungs are clear to auscultation, respirations are non-labored, breath sounds are equal. No wheezes, stridor, rales, or rhonchi. No retractions or abdominal breathing. Gastrointestinal: Soft, non-distended, non-tender abdomen without masses or organomegaly noted. There is no rebound or guarding present. Bowel sounds are unremarkable. Musculoskeletal: Normal ROM, no tenderness. Strength 5/5. Sensation intact. Radial pulses equal bilaterally 2+. Neurological: A&O x 3. CN II-XII intact grossly, There are no obvious motor or sensory deficits. Coordination appears grossly intact. Speech appears normal, no muffling. Skin: Skin is warm and dry and no rashes or lesions are noted. No extremity edema Psychiatric: Cooperative Limitations: no limitations Course Vital Signs 06/02/19 06/02/19 06/03/19 23:47 23:58 00:47 Temperature 101 F H Pulse Rate 123 H 120 H Respiratory 24 20 Rate Blood Pressure 154/95 O2 Sat by Pulse 100 Oximetry 06/03/19 06/03/19 06/03/19 00:59 01:03 01:17 Temperature 99.6 F Pulse Rate 120 H 130 H 129 H Respiratory 18 18 Rate Blood Pressure 109/61 124/64 O2 Sat by Pulse 99 98 Oximetry 06/03/19 02:36 Temperature Pulse Rate 120 H Respiratory 18 Rate Blood Pressure 113/61 O2 Sat by Pulse 97 Oximetry - Reevaluation(s) Reevaluation #1: 06/03/19 02:16 reevaluated, refuses second treatment stating she is feeling much better, no wheeze, improvement of air movement. Medical Decision Making - Medical Decision Making 33yo asthmatic presenting for cc of cough, fever, she appears well nontoxic. + sick contact with confirmed influenza A (son/). Patient has identical clinical symptoms. Patient presents febrile with elevation of HR. Patient given antipyretics. Patient fever trending downward. Patient CXR clear. Lung diminished initially, repeated exam after albuterol significant improvement, patient states that she can take one at home. Patient requesting discharge. Patient case discussed at length including VS with attending who is agreeable to discharge with what is felt a false (-) influenza patient, given close sick contact and similar symptoms. Return parameters discussed at length patient discharged appearing well. - Lab Data Result diagrams: 06/03/19 01:26 06/03/19 01:26 Lab Results 06/02/19 06/03/19 06/03/19 Range/Units 23:55 01:26 01:26 WBC 11.4 H (3.8-10.6) k/uL RBC 5.45 H (3.80-5.40) m/uL Hgb 14.3 (11.4-16.0) gm/dL Hct 44.0 (34.0-46.0) % MCV 80.6 (80.0-100.0) fL MCH 26.2 (25.0-35.0) pg MCHC 32.5 (31.0-37.0) g/dL RDW 13.6 (11.5-15.5) % Plt Count 385 (150-450) k/uL Neutrophils % 80 % Lymphocytes % 13 % Monocytes % 3 % Eosinophils % 2 % Basophils % 1 % Neutrophils # 9.1 H (1.3-7.7) k/uL Lymphocytes # 1.5 (1.0-4.8) k/uL Monocytes # 0.4 (0-1.0) k/uL Eosinophils # 0.2 (0-0.7) k/uL Basophils # 0.1 (0-0.2) k/uL Sodium 136 L (137-145) mmol/L Potassium 3.9 (3.5-5.1) mmol/L Chloride 103 (98-107) mmol/L Carbon Dioxide 23 (22-30) mmol/L Anion Gap 10 mmol/L BUN 14 (7-17) mg/dL Creatinine 0.71 (0.52-1.04) mg/dL Est GFR (CKD-EPI)AfAm >90 (>60 ml/min/1.73 sqM) Est GFR (CKD-EPI)NonAf >90 (>60 ml/min/1.73 sqM) Glucose 109 H (74-99) mg/dL Calcium 9.7 (8.4-10.2) mg/dL Total Bilirubin 0.5 (0.2-1.3) mg/dL AST 37 H (14-36) U/L ALT 45 H (4-34) U/L Alkaline Phosphatase 84 (38-126) U/L Total Protein 7.4 (6.3-8.2) g/dL Albumin 4.3 (3.5-5.0) g/dL Influenza Type A RNA Not Detected (Not Detectd) Influenza Type B (PCR) Not Detected (Not Detectd) Disposition Clinical Impression: Cough, Fever, Viral syndrome Disposition: HOME SELF-CARE Condition: Good Instructions (If sedation given, give patient instructions): Influenza (ED) Additional Instructions: Please use medication as discussed. Please follow-up with family doctor in the next 2 days. Please return to emergency room if the symptoms increase or worsen or for any other concerns. Prescriptions: Oseltamivir [Tamiflu] 75 mg PO Q12HR 5 Days #10 cap Albuterol Nebulized [Ventolin Nebulized] 2.5 mg INHALATION Q4H 7 Days #28 nebu Is patient prescribed a controlled substance at d/c from ED?: No Referrals: Jhon Harden III, MD [Primary Care Provider] - 1-2 days Time of Disposition: 02:44
[2019-06-03 02:37] VITALS: BP 113/61; PULSE 120
== END 2019-06-03 03:06 | disposition home or self-care (01) ==
LOC: EC 23:40
DX: B34.9 Viral infection, unspecified (principal); J45.909 Unspecified asthma, uncomplicated; Z79.51 Long term (current) use of inhaled steroids; Z79.1 Long term (current) use of non-steroidal anti-inflammatories (NSAID); Z87.891 Personal history of nicotine dependence; Z91.040 Latex allergy status; Z88.5 Allergy status to narcotic agent; Z91.041 Radiographic dye allergy status; Z88.8 Allergy status to other drugs, medicaments and biological substances
CPT/HCPCS: 36415; 71046; 80053; 85025; 87502; 94640; 96360; 99284